=== PATIENT | female | born 1975 | race Caucasian/White ===

== ENCOUNTER → 2023-11-13 12:12 | Outpatient (REF) | payer BC, SELFPAY | LOC: HWWDC 12:12 | PROVIDERS: ATTENDING PHYSICIAN Nurse Practitioner Adult Health | DX: Z12.31 Encounter for screening mammogram for malignant neoplasm of breast (principal) | CPT/HCPCS: 77063; 77067 ==

== ENCOUNTER 2024-12-16 06:21 | Day surgery (SDC) | payer BC, SELFPAY ==
[2024-11-30 08:48] LABS: Hematocrit 40.3 % (37.0-47.0); Hemoglobin 13.8 g/dL (12.0-16.0); Mean Corp Hgb Conc. 34.2 g/dL (33.0-37.0); Mean Corpuscular Hgb 32.1 pg (27.0-31.0); Mean Corpuscular Volume 93.7 fL (81.0-99.0); Mean Platelet Volume 9.9 fL (7.4-10.4); Platelet Count 245 10^3/uL (130-400); Red Cell Dist. Width 12.5 % (11.5-14.5); White Blood Cell Count 6.8 10^3/uL (4.8-10.8)
[2024-11-30 09:42] LABS: ALT (SGPT) 15 U/L (0-35); AST (SGOT) 20 U/L (14-36); Albumin 4.8 g/dl (3.5-5.0); Alkaline Phosphatase 43 U/L (38-126); Blood Urea Nitrogen 10 mg/dl (7-17); Carbon Dioxide 23 mmol/L (22-30); Chloride 106 mmol/L (98-107); Glucose 117 mg/dl (70-99); Potassium 4.2 mmol/L (3.5-5.1); Sodium 140 mmol/L (135-145); Total Bilirubin 0.8 mg/dl (0.2-1.3); Total Protein 7.1 g/dl (6.3-8.2); eGFR > 60.00
[2024-11-30 14:04] VITALS: BMI 23.3
[2024-12-11 16:39] VITALS: BMI 23.3
[2024-12-16] VITALS (15 sets, daily range): BP systolic 95–137; BP diastolic 51–82; BMI 23.3
[2024-12-16] MEDS: LYRICA 150 MG PO (09:22)
[2024-12-16] MEDS: TYLENOL 1000 MG PO ×3 (09:22→20:51)
[2024-12-16] MEDS: METHOCARBAMOL 750 MG PO (09:23)
[2024-12-16] MEDS: CELEBREX 200 MG PO (09:23)
[2024-12-16] MEDS: NORMOSOL-R/PLASMALYTE-A 1000 IV ×2 (09:37→17:44)
[2024-12-16] MEDS: DILAUDID 0.5 MG IV ×5 (13:08→15:32)
[2024-12-16] MEDS: DEMEROL 12.5 MG IV (13:24)
[2024-12-16] MEDS: OFIRMEV 100 IV (14:10)
[2024-12-16] MEDS: ROXICODONE 5 MG PO (16:17)
[2024-12-16] MEDS: METHOCARBAMOL 1500 MG PO ×2 (17:49→20:50)
[2024-12-16] MEDS: ULTRAM 50 MG PO ×2 (17:49→20:51)
--- NOTE | 2024-12-16 18:18 | PTCARENOTE ---
Pt arrived to 2S from PACU. AAOx3. VSS. Pt complaining of 8/10 pain - tylenol, tramadol and methocarbamol administered. Gauze & tegaderm dressing c/d/i. Neurovascular check WNL except for increased back pain associated with LUE assessment. IVF
infusing as ordered. Spouse at bedside, bed in lowest position, call egan within reach.
[2024-12-16] MEDS: LYRICA 75 MG PO (20:49)
[2024-12-16] MEDS: COLACE 100 MG PO (20:49)
[2024-12-16] MEDS: SENOKOT 17.2 MG PO (20:49)
[2024-12-16] MEDS: ANCEF 5 IV (20:50)
[2024-12-16] MEDS: ROXICODONE 10 MG PO (22:04)
[2024-12-17] MEDS: ULTRAM 50 MG PO ×4 (01:39→14:32)
[2024-12-17] MEDS: NORMOSOL-R/PLASMALYTE-A 1000 IV (02:44)
[2024-12-17] MEDS: ROXICODONE 5 MG PO (02:45)
[2024-12-17 02:48] VITALS: BP 95/54
[2024-12-17] MEDS: ANCEF 5 IV (04:18)
[2024-12-17] MEDS: ROXICODONE 10 MG PO ×2 (06:02→11:27)
[2024-12-17] MEDS: COLACE 100 MG PO (07:40)
[2024-12-17] MEDS: LYRICA 75 MG PO (07:40)
[2024-12-17] MEDS: METHOCARBAMOL 1500 MG PO ×2 (07:40→13:14)
[2024-12-17] MEDS: SENOKOT 17.2 MG PO (07:41)
[2024-12-17 07:42] LABS: Hemoglobin 11.6 g/dL (12.0-16.0)
[2024-12-17 08:00] VITALS: BP 97/60
[2024-12-17 08:02] LABS: Blood Urea Nitrogen 7 mg/dl (7-17); Calcium 8.5 mg/dl (8.4-10.2); Carbon Dioxide 26 mmol/L (22-30); Chloride 108 mmol/L (98-107); Estimated Creatinine Clearance 117 ml/min; Glucose 114 mg/dl (70-99); Potassium 4.3 mmol/L (3.5-5.1); Sodium 140 mmol/L (135-145); eGFR > 60.00
--- NOTE | 2024-12-17 08:15 | W.DS.TRANS ---
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
-
Discharge Instructions:
Sleep Apnea Risk Low
Instructions:
Stand-Alone Forms:
Changes to Home Medications: No
Discharge Medications:
DC Medications w/original date entered in [employer]
oxycodone-acetaminophen 5 mg-325 mg tablet 1 tab PO Q4HPRN PRN mod-severe pain #30 tabs 01/14/21
biotin 5,000 mcg chewable tablet 5,000 mcg PO DAILY 12/11/24
cholecalciferol (vitamin D3) 50 mcg (2,000 unit) capsule (Vitamin D3) 50 mcg PO DAILY 12/11/24
multivitamin 1 tab PO DAILY 12/11/24
Home Medication Changes
Pending Results: No
--- NOTE | 2024-12-17 08:16 | W.PN.SP ---
Today's Communication / Plan
-
s/p TLIF
Doing as expected
PT
D/c
Subjective / Objective
Subjective Data
PT with back soreness
Leg similar to pre-op
Objective Data
Vital Signs
Temp Pulse Resp BP Pulse Ox
98.8 F 64 17 95/54 98
12/17/24 02:48 12/17/24 02:48 12/16/24 23:35 12/17/24 02:48 12/17/24 02:48
Intake and Output
12/16/24 12/17/24 12/18/24
06:59 06:59 06:59
Intake Total 2640 / 2640
Output Total 1100 / 1100
Balance 1540 / 1540
Intake:
Oral fluids 1440 / 1440
IV fluids (Total) 1200 / 1200
Output:
Urine, [place] 1100 / 1100
Other:
Number of approximated MODERATE 3
amounts of urine
Lab Data
12/17/24 06:37
12/17/24 06:37
Physical Exam
-
moving oth LE
--- NOTE | 2024-12-17 08:52 | W.PN.ORTHO ---
Today's Communication / Plan
-
d/c after IVF+ Midodrine
Assessment
.
Distal Motor Intact: Yes
Dressing:
Clean, dry and intact.
Assessment:
Hypotensive--asx-dose MIdordrine and IVF bolus prior to d/c to avoid home orthostasis
*Prevention of post-op complications re orthostasis and constipation/ileus --discussed and outlined in d/c instructions: TEDs stockings, minimizing opioid, adequate hydration and adhering to bowel regimen*
Plan
.
Surgery / Date: L4-5 TLIF 12/16/24
Activity:
Out of bed.
PT/OT
Discharge Plan: Home
Subjective
.
.:
No complaints
Vital Signs and Labs
.
Vital Signs and Labs:
Lab Results
12/17/24 06:37
12/17/24 06:37
Temp Pulse Resp BP Pulse Ox
98.8 F 64 17 95/54 98
12/17/24 02:48 12/17/24 02:48 12/16/24 23:35 12/17/24 02:48 12/17/24 02:48
Physical Exam
-
HEENT: No pallor, cyanosis, or jaundice. Throat clear.
NECK: Supple. No JVD.
RESPIRATORY: Lungs clear to auscultation.
CVS: S1, S2 normal. RRR.� No murmur, rub or gallop.
ABDOMEN: Soft, non-tender. No distension. BS+/normal.
EXTREMITIES: strength equal, no calf pain with palpation
SHELLFISH GROWER: AOx3. No focal deficits. 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
[2024-12-17] MEDS: TYLENOL 1000 MG PO ×2 (08:57→14:32)
--- NOTE | 2024-12-17 08:58 | W.DS.TRANS ---
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
-
Discharge Instructions:
Sleep Apnea Risk Low
Discharge Diagnosis/Procedures L4-5 TLIF 12/16/24
Diet As tolerated
Activity No strenuous activity
Driving Restrictions No driving
Instructions:
Stand-Alone Forms: [facility]
Changes to Home Medications: Yes
Discharge Medications:
DC Medications w/original date entered in [employer]
biotin 5,000 mcg chewable tablet 5,000 mcg PO DAILY 12/11/24
cholecalciferol (vitamin D3) 50 mcg (2,000 unit) capsule (Vitamin D3) 50 mcg PO DAILY 12/11/24
multivitamin 1 tab PO DAILY 12/11/24
Saccharomyces boulardii 250 mg capsule (Florastor) 250 mg PO BID #1 cap 12/17/24
cephalexin 500 mg capsule 500 mg PO QID infection prevention #20 caps 12/17/24
dexamethasone 4 mg tablet 4 mg PO BID inflammation #6 tabs 12/17/24
docusate sodium 100 mg capsule (Colace) 100 mg PO BID stool softner #1 cap 12/17/24
gabapentin 300 mg capsule 300 mg PO HS sleep/pain #10 caps 12/17/24
magnesium hydroxide 400 mg/5 mL oral suspension (Milk of Magnesia) 30 ml PO HS PRN constipation #1 mL 12/17/24
oxycodone 5 mg tablet 5 mg PO Q6H PRN 1 tab moderate pain, 2 tabs severe pain #30 tabs 12/17/24
sennosides 8.6 mg tablet (Senokot) 17.2 mg (2 x 8.6 mg) PO BID laxative #2 tabs 12/17/24
Home Medication Changes
Saccharomyces boulardii 250 mg capsule (Florastor) 250 mg PO BID #1 cap 12/17/24
cephalexin 500 mg capsule 500 mg PO QID infection prevention #20 caps 12/17/24
dexamethasone 4 mg tablet 4 mg PO BID inflammation #6 tabs 12/17/24
docusate sodium 100 mg capsule (Colace) 100 mg PO BID stool softner #1 cap 12/17/24
gabapentin 300 mg capsule 300 mg PO HS sleep/pain #10 caps 12/17/24
magnesium hydroxide 400 mg/5 mL oral suspension (Milk of Magnesia) 30 ml PO HS PRN constipation #1 mL 12/17/24
oxycodone 5 mg tablet 5 mg PO Q6H PRN 1 tab moderate pain, 2 tabs severe pain #30 tabs 12/17/24
sennosides 8.6 mg tablet (Senokot) 17.2 mg (2 x 8.6 mg) PO BID laxative #2 tabs 12/17/24
Pending Results: No
--- NOTE | 2024-12-17 09:17 | CM ---
Cm reviewed medical records. CM met with patient in room. Patient confirmed demographics. Patient lives independently with . Patient is active with her PCP. Patient uses [facility] for medication services.
Patient has a PT facility that should would prefer at [facility]
PLAN: home no further needs.
[2024-12-17 09:29] VITALS: BP 119/72; PULSE 94
[2024-12-17 10:01] VITALS: BP 119/72; PULSE 70
[2024-12-17] MEDS: NORMOSOL-R/PLASMALYTE-A IV (11:18)
--- NOTE | 2024-12-17 11:40 | PTCARENOTE ---
Patient complains of a burning and a streak of blood on her scalp.She said they told her that they would be putting something in her head for the surgery.There are two small punctures with dried blood present.Patient said she would wash her hair
when she gets home.
[2024-12-17 11:45] VITALS: BP 111/62
[2024-12-17] MEDS: ProAmatine 5 MG PO (12:47)
[2024-12-17] MEDS: NORMOSOL-R/PLASMALYTE-A 250 IV (13:53)
[2024-12-17 14:50] VITALS: BP 130/74
== END 2024-12-17 15:50 | disposition home or self-care (01) ==
LOC: SDS 06:21
PROVIDERS: Physician Assistant Medical; ATTENDING PHYSICIAN Orthopaedic Surgery Orthopaedic Surgery of the Spine; FAMILY PHYSICIAN Family Medicine
DX: M48.061 Spinal stenosis, lumbar region without neurogenic claudication (principal); M51.26 Other intervertebral disc displacement, lumbar region; M43.16 Spondylolisthesis, lumbar region
CPT/HCPCS: 22630; 22853; 20930; 22840; C1713; 72100; 76000; 80048; 80053; 85014; 85018; 85027; 86850; 86900; 86901; 87070; 97116; 97162; 97166; 97535